=== PATIENT | male | born 1950 | race American Indian/Alaskan Native ===

== ENCOUNTER 2016-10-16 09:44 | Emergency (ER) | payer OTHER ==
[2016-10-16 09:51] VITALS: BP 141/86
[2016-10-16] MEDS ORDERED: XYLOCAINE 1% MPF 5 mL INFILTRATI ONE (11:35)
[2016-10-16] MEDS ORDERED: NACL 0.9% IR ONE (11:36)
--- NOTE | 2016-10-18 07:07 | Emergency Department Report ---
Entered by CYNDEE HU, acting as scribe for EBONY RG PA. - General Chief Complaint: Wound/Laceration Stated Complaint: PUNCTURE WOUND ON L HAND Time Seen by Provider: 10/16/16 11:32 Source: patient Mode of arrival: Ambulatory Limitations: No Limitations - History of Present Illness Initial Comments: 66 year old presents to ED with c/o laceration to left hand between thumb and index finger earlier today. 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 Patient states he put pressure on it with a bandage wrap, but took no meds for pain. Patient describes pain as sore, but denies any numbness, trauma to hand, and tingling. Patient states unknown UTD tetanus shot. PMHx of HTN and DM. -: This morning Extremity Location: Left: Hand Place: home Patient Tetanus UTD: No (unknown) Context: accidental Associated Symptoms: none, pain. denies: loss of feeling/numbness, suspect foreign body present, unable to move injured part, weakness followed by dizziness, nausea/vomiting, fever Treatments Prior to Arrival: bandage - Related Data Previous Rx's Medication Instructions Recorded Last Taken Type Cephalexin [Keflex] 500 mg PO Q8HR #15 cap 10/16/16 Unknown Rx Allergies Allergy/AdvReac Type Severity Reaction Status Date / Time No Known Allergies Allergy Unverified 07/30/15 11:07 ED Review of Systems Comment: All other systems reviewed and negative Constitutional: denies: chills, fever Respiratory: denies: cough, shortness of breath, wheezing Cardiovascular: denies: chest pain, palpitations Gastrointestinal: denies: abdominal pain, nausea, vomiting, diarrhea Skin: other (laceration between thumb on left hand). denies: rash, lesions Neurological: denies: headache, weakness, numbness, paresthesias ED Past Medical Hx - Past Medical History Previous Medical History?: Yes Hx Hypertension: Yes Hx Diabetes: Yes - Surgical History Past Surgical History?: Yes Additional Surgical History: hernia repair - Family History Family history: no significant - Social History Smoking Status: Never Smoker Substance Use Type: Alcohol - Medications Home Medications: Home Medications Medication Instructions Recorded Confirmed Last Taken Type Cephalexin [Keflex] 500 mg PO Q8HR #15 cap 10/16/16 Unknown Rx ED Physical Exam - General Limitations: No Limitations General appearance: alert, in no apparent distress - Head Head exam: Present: atraumatic, normocephalic - Eye Eye exam: Present: normal appearance, PERRL, EOMI Pupils: Present: normal accommodation - Neck Neck exam: Present: normal inspection, full ROM. Absent: tenderness, meningismus, lymphadenopathy - Respiratory Respiratory exam: Present: normal lung sounds bilaterally (Lungs cleared, s1/s2) . Absent: respiratory distress, wheezes, rales, rhonchi, stridor - Cardiovascular Cardiovascular Exam: Present: regular rate, normal rhythm, normal heart sounds ( no murmurs). Absent: systolic murmur, diastolic murmur, rubs, gallop - Extremities Exam Extremities exam: Present: normal inspection, full ROM, normal capillary refill. Absent: tenderness, pedal edema, joint swelling - Expanded Upper Extremity Exam Left Shoulder Exam: Present: normal inspection, full ROM. Absent: tenderness, swelling, abrasion, laceration, ecchymosis, deformity, crepidus, dislocation, erythema, tenderness over AC joint Upper Arm exam: Present: normal inspection, full ROM. Absent: tenderness, swelling, abrasion, laceration, ecchymosis, deformity, crepidus, dislocation, erythema Elbow exam: Present: normal inspection, full ROM. Absent: tenderness, swelling , abrasion, laceration, ecchymosis, deformity, crepidus, dislocation, erythema, effusion, pain w/ pronation/supination, tenderness over radial head Forearm Wrist exam: Present: normal inspection, full ROM. Absent: tenderness, swelling, abrasion, laceration, ecchymosis, deformity, crepidus, dislocation, erythema, tenderness over anatomical snuff box, pain with axial thumb loading Hand Wrist exam: Present: normal inspection, full ROM (able to open and close hands without difficulties), tenderness, laceration (0.5 cm laceration liinear with small amount of bleeding ), other (2+ pulses). Absent: swelling, abrasion , ecchymosis, deformity, crepidus, dislocation, erythema, amputation, nail avulsion, subungual hematoma Neuro motor exam: Present: wrist extension intact, thumb opposition intact, thumb IP flexion intact, thumb adduction intact, fingers 2-5 abduction intact Vascular: Present: vascular compromise, normal capillary refill, radial pulse, brachial pulse, ulnar pulse. Absent: Pallo, pulse deficit radial art, pulse deficit ulnar art, pulse deficit brachial art - Back Exam Back exam: Present: normal inspection, full ROM. Absent: tenderness - Neurological Exam Neurological exam: Present: alert, oriented X3, normal gait, reflexes normal. Absent: motor sensory deficit - Psychiatric Psychiatric exam: Present: normal affect, normal mood - Skin Skin exam: Present: warm, dry, intact, normal color, other (0.5 cm laceration liinear with small amount of bleeding ). Absent: rash - Expanded Skin Exam Expanded Type of lesion: Present: laceration Distribution of rash: LUE ( left hand) Description of rash: Present: size ( 0.5 cm), tenderness. Absent: discharge, fluctuant, indurated ED Course Vital Signs 10/16/16 09:49 Temperature 98.6 F Pulse Rate 71 Respiratory 16 Rate Blood Pressure 141/86 O2 Sat by Pulse 100 Oximetry - Reevaluation(s) Reevaluation #1: 10/18/16 06:59 Laceration repaired. See procedure note for details - Laceration /Wound Repair Left Dorsal Hand Wound Location: upper extremity (left dorsal aspects of the hand at the first metacarpal bone area) Wound Length (cm): 1 (1 cm) Wound's Depth, Shape: superficial, linear Wound Explored: clean Irrigated w/ Saline (ccs): 350 Betadine Prep?: Yes Anesthesia: 1% Lidocaine Volume Anesthetic (ccs): 2 Wound Debrided: moderate Wound Repaired With: sutures Suture Size/Type: 3:0 (Ethilon) Number of Sutures: 7 Layer Closure?: No Sterile Dressing Applied?: Yes Progress: Patient care for laceration repair. Tetanus vaccine is less than 5 years. Laceration repaired under sterile procedure and patient instructed to return to emergency room in 7-10 days to have stitches removed. ED Medical Decision Making - Medical Decision Making MDM Assessment/Plan ED course: Patient here reports that he cut himself with instruments and here with laceration to his left hand. Laceration was repaired. Tetanus shot is up- to-date. Patient given pain medication for hand pain. Patient instructed to return to emergency room in 7-10 days to have sutures removed. Antibiotic given along with pain medication Diagnostic and labs: Need for labs or diagnostic status Assessment: Laceration to left hand without complication or foreign body, arthralgia left hand Medication: Motrin 800 mg given in emergency room. Patient discharged home with prescription for Keflex Plan follow-up follow-up with primary care physician as instructed .return to the emergency room in 7-10 days for suture removal. ED Disposition Clinical Impression: Arthralgia of left hand Laceration of hand, left Qualifiers: Encounter type: initial encounter Foreign body presence: without foreign body Qualified Code(s): S61.412A - Laceration without foreign body of left hand, initial encounter Disposition: TO HOME OR SELFCARE Is pt being admited?: No Does the pt Need Aspirin: No Condition: Stable Instructions: Suture Care (ED), Soft Tissue Foreign Body (ED) Additional Instructions: Take medication as prescribed . Referred to discharge instruction for suture care Please return to emergency room in 7-10 days to have stitches removed. Please keep affected area clean and dry Take antibiotic as prescribed. Prescriptions: Cephalexin [Keflex] 500 mg PO Q8HR #15 cap Referrals: PRIMARY CARE,MD [Primary Care Provider] - 3-5 Days returned to, ER [Other] - 7-10 days Forms: Work/School Release Form(ED) This documentation as recorded by the MAYTE kurtz PEARL,accurately reflects the service I personally performed and the decisions made by ,EBONY RG PA.
== END 2016-10-16 13:05 | disposition home or self-care (01) ==
LOC: ED 09:44
DX: S61.412A Laceration without foreign body of left hand, initial encounter (principal); I10 Essential (primary) hypertension; E11.9 Type 2 diabetes mellitus without complications; W45.8XXA Other foreign body or object entering through skin, initial encounter; Y93.89 Activity, other specified; Y99.8 Other external cause status; Y92.89 Other specified places as the place of occurrence of the external cause